=== PATIENT | male | born 1975 | race Hispanic/Latino ===

== ENCOUNTER 2023-03-26 09:15 | Inpatient (IN) | payer OTHER ==
[~2023-03-26] VITALS: Ht 180.3 cm; Wt 83.9 kg
[~2023-03-26 09:15] MED LIST: ASPIRIN81 MG PO; ATENOLOL50 MG PO; BENICAR20 MG PO; LEVOFLOXACIN250 MG PO; METFORMIN HCL500 MG PO; ONDANSETRON ODT4 MG PO; SENOKOT-S TABL1 EACH PO; TRULICITY1.5 MG/0.5; tylenol #3 PO
[2023-03-26] MEDS: SODIUM CHLORIDE 0.9% 1000ML 1,000 ML IV SCH ×2 (09:30→17:23)
[2023-03-26 10:20] LABS: BASOPHILS # (AUTO) 0.1 (0.0-0.1); BASOPHILS % 0.5 % (0.0-1.0); EOSINOPHILS # (AUTO) 0.3 (0.0-0.4); EOSINOPHILS % 1.7 % (0.0-6.0); HEMATOCRIT 43.3 % (38.2-49.6); HEMOGLOBIN 14.9 g/dL (14.0-18.0); LYMPHOCYTES # (AUTO) 3.6 (1.0-3.2); LYMPHOCYTES % 23.9 % (18.0-39.1); MEAN CORPUSCULAR HEMOGLOBIN 26.3 pg (28-32); MEAN CORPUSCULAR HGB CONC 34.4 g/dL (31-35); MEAN CORPUSCULAR VOLUME 76.5 fL (81-99); MONOCYTES # (AUTO) 1.3 (0.2-0.8); MONOCYTES % 8.9 % (4.4-11.3); NEUTROPHILS # (AUTO) 9.6 (2.1-6.9); NEUTROPHILS % 64.7 % (38.7-80.0); PLATELET COUNT 443 x10e3/uL (140-360); RED BLOOD COUNT 5.66 x10e6/uL (4.3-5.7); RED CELL DISTRIBUTION WIDTH 14.7 % (11.7-14.4); WHITE BLOOD COUNT 14.87 x10e3/uL (4.8-10.8)
[2023-03-26 10:32] LABS: ANION GAP 13.9 mmol/L (8-16); CALCIUM 9.8 mg/dL (8.4-10.2); CREATININE, SERUM 0.96 mg/dL (0.72-1.25); POTASSIUM 3.9 mmol/L (3.5-5.1)
[2023-03-26 11:01] LABS: INR 0.92; PROTHROMBIN TIME 12.9 seconds (11.9-14.5)
[2023-03-26 11:06] VITALS: PULSE 86; RESP 18; O2SAT 96
[2023-03-26 11:33] VITALS: BP 165/86; PULSE 88; RESP 20; TEMP 98; O2SAT 100
[2023-03-26 11:49] VITALS: BP 179/107; PULSE 88; RESP 20; TEMP 98; O2SAT 100
[2023-03-26 16:32] VITALS: BP 181/99; PULSE 80; RESP 20; TEMP 98; O2SAT 100
[2023-03-26] MEDS ORDERED: DEXTROSE 50% SYRINGE 50 ML IV PRN (17:45)
[2023-03-26] MEDS: OLMESARTAN 20 MG TAB PO SCH (18:17)
[2023-03-26 20:00] VITALS: BP 129/78; PULSE 80; RESP 18; TEMP 98.6; O2SAT 100
[2023-03-26] MEDS: INSULIN LISPRO 100 UNIT/1 ML 3ML VIAL SQ SCH (21:00)
[2023-03-26] MEDS: SENNA-S TABLET PO SCH (21:30)
[2023-03-26] MEDS: ONDANSETRON HCL INJ 2MG/ML 2ML 2 MG/ML VIAL IV PRN (21:31)
[2023-03-26] MEDS: Morphine 4mg INJECTION 4 MG/ML INJ IV PRN (21:31)
[2023-03-27] VITALS (7 sets, daily range): BP systolic 103–150; BP diastolic 63–86; PULSE 68–76; RESP 17–18; TEMP 97.6–98.9; O2SAT 100
[2023-03-27 05:45] LABS: BASOPHILS # (AUTO) 0.1 (0.0-0.1); BASOPHILS % 0.5 % (0.0-1.0); EOSINOPHILS # (AUTO) 0.3 (0.0-0.4); EOSINOPHILS % 2.4 % (0.0-6.0); HEMATOCRIT 42.3 % (38.2-49.6); LYMPHOCYTES # (AUTO) 3.1 (1.0-3.2); LYMPHOCYTES % 24.7 % (18.0-39.1); MEAN CORPUSCULAR HEMOGLOBIN 26.3 pg (28-32); MEAN CORPUSCULAR HGB CONC 33.1 g/dL (31-35); MEAN CORPUSCULAR VOLUME 79.5 fL (81-99); MONOCYTES # (AUTO) 1.2 (0.2-0.8); MONOCYTES % 9.8 % (4.4-11.3); NEUTROPHILS # (AUTO) 7.7 (2.1-6.9); NEUTROPHILS % 62.3 % (38.7-80.0); PLATELET COUNT 425 x10e3/uL (140-360); RED BLOOD COUNT 5.32 x10e6/uL (4.3-5.7); RED CELL DISTRIBUTION WIDTH 15.1 % (11.7-14.4); WHITE BLOOD COUNT 12.34 x10e3/uL (4.8-10.8)
[2023-03-27] MEDS: SODIUM CHLORIDE 0.9% 1000ML 1,000 ML IV SCH ×3 (05:54→21:01)
[2023-03-27 06:08] LABS: ANION GAP 13.7 mmol/L (8-16); CALCIUM 10.1 mg/dL (8.4-10.2); CREATININE, SERUM 1.12 mg/dL (0.72-1.25); POTASSIUM 3.7 mmol/L (3.5-5.1)
[2023-03-27] MEDS: INSULIN LISPRO 100 UNIT/1 ML 3ML VIAL SQ SCH ×4 (07:30→21:00)
[2023-03-27] MEDS ORDERED: HYDRALAZINE HCL 20 MG/ML VIAL IV PRN (08:45)
[2023-03-27] MEDS ORDERED: LEVOFLOXACIN 500 MG TAB PO SCH (09:00)
[2023-03-27] MEDS: OLMESARTAN 20 MG TAB PO SCH (11:19)
[2023-03-27] MEDS: SENNA-S TABLET PO SCH ×2 (11:20→21:00)
[2023-03-27] MEDS: ATENOLOL 50 MG TAB PO SCH (11:21)
[2023-03-27] MEDS: Vancomycin IV 1 GM in SODIUM CHLORIDE 0.9% 250ML 250 ML IV SCH (18:28)
[2023-03-27] MEDS: Morphine 4mg INJECTION 4 MG/ML INJ IV PRN (18:29)
[2023-03-28] MEDS: Morphine 4mg INJECTION 4 MG/ML INJ IV PRN ×2 (02:20→20:53)
[2023-03-28] MEDS: Vancomycin IV 1 GM in SODIUM CHLORIDE 0.9% 250ML 250 ML IV SCH ×2 (05:20→16:14)
[2023-03-28 07:14] VITALS: BP 140/90; PULSE 66; RESP 18; TEMP 98.7; O2SAT 100
[2023-03-28] MEDS: INSULIN LISPRO 100 UNIT/1 ML 3ML VIAL SQ SCH ×4 (07:30→20:50)
[2023-03-28] MEDS: ATENOLOL 50 MG TAB PO SCH (08:33)
[2023-03-28] MEDS: SENNA-S TABLET PO SCH ×2 (08:33→20:50)
[2023-03-28] MEDS: OLMESARTAN 20 MG TAB PO SCH (08:34)
[2023-03-28 09:07] VITALS: BP 153/89; PULSE 68; RESP 20; TEMP 98; O2SAT 100
[2023-03-28] MEDS ORDERED: ACETAMINOPHEN/CODEINE 300MG - 30MG TAB PO PRN (09:45)
[2023-03-28 12:22] VITALS: BP 150/88; PULSE 69; RESP 18; TEMP 98.4; O2SAT 100
[2023-03-28 16:52] VITALS: BP 145/85; PULSE 72; RESP 18; TEMP 98.6; O2SAT 100
[2023-03-28 18:10] VITALS: BP 145/85; PULSE 72; RESP 18; TEMP 98.6; O2SAT 100
[2023-03-28 20:00] VITALS: BP 175/68; PULSE 71; RESP 18; TEMP 99.1; O2SAT 100
[2023-03-28] MEDS: ONDANSETRON HCL INJ 2MG/ML 2ML 2 MG/ML VIAL IV PRN (20:53)
[2023-03-29] VITALS: BP 137/79; PULSE 64; RESP 19; TEMP 98.6; O2SAT 100
[2023-03-29 04:00] VITALS: BP 124/78; PULSE 57; RESP 18; TEMP 97.9; O2SAT 100
[2023-03-29] MEDS: Vancomycin IV 1 GM in SODIUM CHLORIDE 0.9% 250ML 250 ML IV SCH (04:26)
[2023-03-29] MEDS: INSULIN LISPRO 100 UNIT/1 ML 3ML VIAL SQ SCH ×4 (07:30→20:18)
[2023-03-29 08:29] VITALS: BP 139/88; PULSE 70; RESP 16; TEMP 98; O2SAT 100
[2023-03-29 09:28] VITALS: BP 139/88; PULSE 70; RESP 16; TEMP 98; O2SAT 100
[2023-03-29] MEDS: OLMESARTAN 20 MG TAB PO SCH (10:01)
[2023-03-29] MEDS: SENNA-S TABLET PO SCH ×3 (10:01→20:36)
[2023-03-29] MEDS: ATENOLOL 50 MG TAB PO SCH (10:02)
[2023-03-29 12:00] VITALS: BP 159/91; PULSE 61; RESP 18; TEMP 97.8; O2SAT 100
[2023-03-29] MEDS ORDERED: Vancomycin IV 1.25 GM in SODIUM CHLORIDE 0.9% 250ML 250 ML IV SCH (15:00)
[2023-03-29] MEDS: ONDANSETRON HCL INJ 2MG/ML 2ML 2 MG/ML VIAL IV PRN (20:25)
[2023-03-29] MEDS: Morphine 4mg INJECTION 4 MG/ML INJ IV PRN (20:25)
[2023-03-29 20:30] VITALS: BP 178/95; PULSE 61; PULSE 67; RESP 18; TEMP 98.1; O2SAT 100
[2023-03-30 04:57] LABS: BASOPHILS # (AUTO) 0.1 (0.0-0.1); BASOPHILS % 0.7 % (0.0-1.0); EOSINOPHILS # (AUTO) 0.4 (0.0-0.4); EOSINOPHILS % 4.4 % (0.0-6.0); HEMATOCRIT 41.9 % (38.2-49.6); HEMOGLOBIN 13.8 g/dL (14.0-18.0); LYMPHOCYTES # (AUTO) 3.1 (1.0-3.2); LYMPHOCYTES % 32.6 % (18.0-39.1); MEAN CORPUSCULAR HEMOGLOBIN 26.1 pg (28-32); MEAN CORPUSCULAR HGB CONC 32.9 g/dL (31-35); MEAN CORPUSCULAR VOLUME 79.2 fL (81-99); MONOCYTES % 10.7 % (4.4-11.3); NEUTROPHILS # (AUTO) 4.9 (2.1-6.9); NEUTROPHILS % 51.4 % (38.7-80.0); PLATELET COUNT 422 x10e3/uL (140-360); RED BLOOD COUNT 5.29 x10e6/uL (4.3-5.7); RED CELL DISTRIBUTION WIDTH 14.6 % (11.7-14.4); WHITE BLOOD COUNT 9.52 x10e3/uL (4.8-10.8)
[2023-03-30 05:16] LABS: ANION GAP 14.6 mmol/L (8-16); CALCIUM 9.1 mg/dL (8.4-10.2); CREATININE, SERUM 0.91 mg/dL (0.72-1.25); POTASSIUM 3.6 mmol/L (3.5-5.1)
[2023-03-30 05:29] VITALS: BP 124/74; PULSE 70; RESP 18; TEMP 97.3; O2SAT 100
[2023-03-30] MEDS: INSULIN LISPRO 100 UNIT/1 ML 3ML VIAL SQ SCH ×4 (07:30→20:37)
[2023-03-30 08:00] VITALS: BP 129/81; PULSE 72; RESP 20; TEMP 97.8; O2SAT 100
[2023-03-30 08:38] VITALS: BP 129/81; PULSE 72; RESP 20; TEMP 97.8; O2SAT 100
[2023-03-30] MEDS: ATENOLOL 50 MG TAB PO SCH (09:00)
[2023-03-30] MEDS: SENNA-S TABLET PO SCH ×2 (09:00→20:41)
[2023-03-30] MEDS: OLMESARTAN 20 MG TAB PO SCH (09:00)
[2023-03-30] MEDS: VANCOMYCIN 1.25GM/250ML PREMIX 250 ML IV SCH ×2 (09:36→20:37)
[2023-03-30 12:00] VITALS: BP 148/92; PULSE 79; RESP 19; TEMP 98.1; O2SAT 100
[2023-03-30] MEDS ORDERED: PROPOFOL IV EMULSION 10 MG/ML 20 ML VIAL ONE (12:27)
[2023-03-30] MEDS ORDERED: ONDANSETRON HCL INJ 2MG/ML 2ML 2 MG/ML VIAL ONE (12:27)
[2023-03-30] MEDS ORDERED: SEVOFLURANE INHAL SOLN 250 ML PEN BTL ONE (12:27)
[2023-03-30] MEDS ORDERED: LIDOCAINE HCL 2% LOCAL INJ 5 ML SDV VIAL INJ ONE (12:27)
[2023-03-30] MEDS ORDERED: FENTANYL CITRATE/PF 100MCG/2 ML INJ ONE (12:59)
[2023-03-30] MEDS ORDERED: MIDAZOLAM HCL 2 MG/2 ML VIAL ONE (12:59)
[2023-03-30] MEDS ORDERED: Morphine 10mg syringe 10 MG/ML INJ ONE (12:59)
[2023-03-30] MEDS ORDERED: IOPAMIDOL 610MG/1ML 300 MG/ML VIAL IV ONE (13:46)
[2023-03-30] MEDS ORDERED: Vancomycin IV 500 MG ONE (14:00)
[2023-03-30] MEDS ORDERED: SODIUM CHLORIDE 0.9% 500ML 500 ML ONE (14:00)
[2023-03-30] MEDS ORDERED: MUPIROCIN 2% OINT 22 GM TUBE ONE (14:00)
[2023-03-30] MEDS ORDERED: GENTAMICIN SULFATE 40 MG/ML 2 ML VIAL ONE (14:00)
[2023-03-30] MEDS ORDERED: ACETAMINOPHEN/CODEINE 300MG - 30MG TAB PO PRN (16:30)
[2023-03-30] MEDS ORDERED: DIPHENHYDRAMINE HCL 25 MG CAP PO PRN (16:30)
[2023-03-30] MEDS ORDERED: PHENAZOPYRIDINE HCL 100 MG TAB PO PRN (16:30)
[2023-03-30] MEDS ORDERED: MORPHINE SULFATE 1 MG/ML 30ML PCA IV PRN (16:30)
[2023-03-30] MEDS ORDERED: NALOXONE HCL INJ 0.4 MG/ML AMP IV PRN (16:30)
[2023-03-30] MEDS ORDERED: ONDANSETRON HCL INJ 2MG/ML 2ML 2 MG/ML VIAL IV PRN (16:30)
[2023-03-30] MEDS ORDERED: MORPHINE SULFATE 1 MG/ML 30ML PCA ONE (16:58)
[2023-03-30 18:00] VITALS: BP 148/92; PULSE 79; RESP 19; TEMP 98.1; O2SAT 100
[2023-03-30] MEDS ORDERED: ACETAMINOPHEN 1000 MG/100 ML IV PRN (18:00)
[2023-03-30] MEDS: SODIUM CHLORIDE 0.9% 1000ML 1,000 ML IV SCH (18:10)
[2023-03-30 20:00] VITALS: BP 146/79; PULSE 66; RESP 18; TEMP 97.9; O2SAT 100
[2023-03-31] VITALS (9 sets, daily range): BP systolic 122–191; BP diastolic 70–88; PULSE 68–84; RESP 18–19; TEMP 97.9–98.9; O2SAT 96–100
[2023-03-31] MEDS: SODIUM CHLORIDE 0.9% 1000ML 1,000 ML IV SCH (04:04)
[2023-03-31 05:25] LABS: BASOPHILS # (AUTO) 0.1 (0.0-0.1); BASOPHILS % 0.4 % (0.0-1.0); EOSINOPHILS # (AUTO) 0.1 (0.0-0.4); EOSINOPHILS % 1.2 % (0.0-6.0); HEMATOCRIT 37.4 % (38.2-49.6); HEMOGLOBIN 12.4 g/dL (14.0-18.0); LYMPHOCYTES # (AUTO) 1.8 (1.0-3.2); LYMPHOCYTES % 14.6 % (18.0-39.1); MEAN CORPUSCULAR HEMOGLOBIN 26.4 pg (28-32); MEAN CORPUSCULAR HGB CONC 33.2 g/dL (31-35); MEAN CORPUSCULAR VOLUME 79.6 fL (81-99); MONOCYTES # (AUTO) 1.2 (0.2-0.8); MONOCYTES % 10.3 % (4.4-11.3); NEUTROPHILS # (AUTO) 8.8 (2.1-6.9); NEUTROPHILS % 73.2 % (38.7-80.0); PLATELET COUNT 358 x10e3/uL (140-360); RED CELL DISTRIBUTION WIDTH 14.6 % (11.7-14.4); WHITE BLOOD COUNT 12.01 x10e3/uL (4.8-10.8)
[2023-03-31 05:48] LABS: ANION GAP 12.4 mmol/L (8-16); CALCIUM 8.6 mg/dL (8.4-10.2); CREATININE, SERUM 0.96 mg/dL (0.72-1.25); POTASSIUM 3.4 mmol/L (3.5-5.1)
[2023-03-31] MEDS ORDERED: ONDANSETRON HCL 4 MG ORAL DISINTEGRATING TAB PO PRN (09:00)
[2023-03-31] MEDS ORDERED: HYDROXYZINE HCL 25 MG TAB PO PRN (09:15)
[2023-03-31] MEDS: SENNA-S TABLET PO SCH ×2 (09:20→23:18)
[2023-03-31] MEDS: ATENOLOL 50 MG TAB PO SCH (09:21)
[2023-03-31] MEDS: OLMESARTAN 20 MG TAB PO SCH (09:21)
[2023-03-31] MEDS: VANCOMYCIN 1.25GM/250ML PREMIX 250 ML IV SCH ×2 (09:22→23:20)
[2023-03-31] MEDS: INSULIN LISPRO 100 UNIT/1 ML 3ML VIAL SQ SCH ×4 (09:29→21:00)
[2023-03-31] MEDS: HYDROXYZINE HCL 10 MG TAB PO SCH ×3 (12:00→23:18)
[2023-03-31] MEDS ORDERED: SODIUM CHLORIDE 0.9% 250ML 250 ML ONE (14:52)
[2023-04-01] VITALS (9 sets, daily range): BP systolic 123–154; BP diastolic 76–96; PULSE 65–77; RESP 18–21; TEMP 98.1–99.3; O2SAT 96–100
[2023-04-01 05:31] LABS: BASOPHILS # (AUTO) 0.1 (0.0-0.1); BASOPHILS % 0.5 % (0.0-1.0); EOSINOPHILS # (AUTO) 0.3 (0.0-0.4); EOSINOPHILS % 2.6 % (0.0-6.0); HEMOGLOBIN 11.9 g/dL (14.0-18.0); LYMPHOCYTES % 24.3 % (18.0-39.1); MEAN CORPUSCULAR HEMOGLOBIN 26.2 pg (28-32); MEAN CORPUSCULAR HGB CONC 33.1 g/dL (31-35); MEAN CORPUSCULAR VOLUME 79.1 fL (81-99); MONOCYTES # (AUTO) 1.4 (0.2-0.8); MONOCYTES % 11.9 % (4.4-11.3); NEUTROPHILS # (AUTO) 7.3 (2.1-6.9); NEUTROPHILS % 60.4 % (38.7-80.0); PLATELET COUNT 336 x10e3/uL (140-360); RED BLOOD COUNT 4.55 x10e6/uL (4.3-5.7); RED CELL DISTRIBUTION WIDTH 14.9 % (11.7-14.4); WHITE BLOOD COUNT 12.12 x10e3/uL (4.8-10.8)
[2023-04-01 06:16] LABS: ANION GAP 11.4 mmol/L (8-16); CALCIUM 8.6 mg/dL (8.4-10.2); CREATININE, SERUM 0.78 mg/dL (0.72-1.25); POTASSIUM 3.4 mmol/L (3.5-5.1)
[2023-04-01] MEDS: INSULIN LISPRO 100 UNIT/1 ML 3ML VIAL SQ SCH ×4 (07:30→21:00)
[2023-04-01] MEDS: SENNA-S TABLET PO SCH ×2 (08:31→22:05)
[2023-04-01] MEDS: OLMESARTAN 20 MG TAB PO SCH (08:31)
[2023-04-01] MEDS: ATENOLOL 50 MG TAB PO SCH (08:31)
[2023-04-01] MEDS: HYDROXYZINE HCL 10 MG TAB PO SCH ×4 (08:32→22:05)
[2023-04-01] MEDS ORDERED: POTASSIUM CHLORIDE 10MEQ EA PO ONE (08:45)
[2023-04-01] MEDS: VANCOMYCIN 1.25GM/250ML PREMIX 250 ML IV SCH ×3 (13:16→22:11)
[2023-04-01] MEDS ORDERED: ACETAMINOPHEN/CODEINE 300MG - 30MG TAB PO PRN (13:45)
[2023-04-01] MEDS ORDERED: NEOMYCIN/POLYMYXIN/BACITRACIN 15 GM TUBE TOP SCH (21:00)
[2023-04-01] MEDS: Morphine 4mg INJECTION 4 MG/ML INJ IV PRN (22:05)
[2023-04-02] VITALS: BP 152/85; PULSE 72; RESP 17; TEMP 98.3; O2SAT 100
[2023-04-02 04:00] VITALS: BP 161/94; PULSE 78; RESP 18; TEMP 98.5; O2SAT 100
[2023-04-02] MEDS: Morphine 4mg INJECTION 4 MG/ML INJ IV PRN (05:16)
[2023-04-02 07:12] LABS: ANION GAP 13.1 mmol/L (8-16); CALCIUM 8.2 mg/dL (8.4-10.2); CREATININE, SERUM 0.83 mg/dL (0.72-1.25); POTASSIUM 3.1 mmol/L (3.5-5.1)
[2023-04-02] MEDS: INSULIN LISPRO 100 UNIT/1 ML 3ML VIAL SQ SCH (07:30)
[2023-04-02] MEDS: HYDROXYZINE HCL 10 MG TAB PO SCH (07:59)
[2023-04-02] MEDS: SENNA-S TABLET PO SCH (07:59)
[2023-04-02] MEDS: ATENOLOL 50 MG TAB PO SCH (08:00)
[2023-04-02] MEDS: OLMESARTAN 20 MG TAB PO SCH (08:00)
[2023-04-02 08:27] VITALS: BP 143/84; PULSE 68; RESP 18; TEMP 99; O2SAT 99
[2023-04-02] MEDS ORDERED: POTASSIUM CHLORIDE 10MEQ EA PO ONE (09:45)
== END 2023-04-02 11:22 | disposition home or self-care (01) | DRG 675 ==
LOC: ER 09:20 → ERHOLD 09:24 → MED/SURG 11:03
PROVIDERS: ADMIT Internal Medicine; ATTEND Internal Medicine
PROC: 0VPS0JZ Removal of Synthetic Substitute from Penis, Open Approach (ICD-10-PCS; 2023-03-30)
PROC: 0VUS0JZ Supplement Penis with Synthetic Substitute, Open Approach (ICD-10-PCS; 2023-03-30)
PROC: 0T7D8ZZ Dilation of Urethra, Via Natural or Artificial Opening Endoscopic (ICD-10-PCS; 2023-03-30)
PROC: 02HV33Z Insertion of Infusion Device into Superior Vena Cava, Percutaneous Approach (ICD-10-PCS; principal; 2023-03-31)
PROC: B548ZZA Ultrasonography of Superior Vena Cava, Guidance (ICD-10-PCS; 2023-03-31)
DX: T83.61XA Infection and inflammatory reaction due to implanted penile prosthesis, initial encounter (principal); T83.410A Breakdown (mechanical) of implanted penile prosthesis, initial encounter; N48.22 Cellulitis of corpus cavernosum and penis; Y82.8 Other medical devices associated with adverse incidents; Y92.9 Unspecified place or not applicable; I10 Essential (primary) hypertension; N52.9 Male erectile dysfunction, unspecified; I16.0 Hypertensive urgency; E78.5 Hyperlipidemia, unspecified; E11.51 Type 2 diabetes mellitus with diabetic peripheral angiopathy without gangrene; N35.819 Other urethral stricture, male, unspecified site; N35.919 Unspecified urethral stricture, male, unspecified site; Y73.1 Therapeutic (nonsurgical) and rehabilitative gastroenterology and urology devices associated with adverse incidents; N50.89 Other specified disorders of the male genital organs; Z91.198 Patient's noncompliance with other medical treatment and regimen for other reason; D72.829 Elevated white blood cell count, unspecified; T83.719A Erosion of other prosthetic materials to surrounding organ or tissue, initial encounter; Z86.718 Personal history of other venous thrombosis and embolism; Z79.85 Long-term (current) use of injectable non-insulin antidiabetic drugs; Z79.899 Other long term (current) drug therapy; Z79.890 Hormone replacement therapy; Z79.84 Long term (current) use of oral hypoglycemic drugs; Z20.822 Contact with and (suspected) exposure to COVID-19
CPT/HCPCS: 36415; 36569; 71045; 80048; 80202; 82948; 85025; 85610; 87071; 87075; 87205; 88300; 88302; 88304; 94799; 99284; C2622; J1580; J2001; J2250; J2270; J2405; J2543; J3370; J3410; J7030; J7040; J7050; U0002